=== PATIENT | female | born 1975 | race Caucasian/White ===

== ENCOUNTER → 2017-06-05 | Outpatient (CLI) | payer OTHER ==
[~2017-06-05] MED LIST: OMNIPAQUE 350 MG/ML, 150 ML BOTTLE ONE
== END | disposition home or self-care (01) ==
LOC: RAD 13:26
PROVIDERS: ATTEND Nurse Practitioner Family
DX: N20.0 Calculus of kidney (principal); K76.0 Fatty (change of) liver, not elsewhere classified; K42.9 Umbilical hernia without obstruction or gangrene; R59.0 Localized enlarged lymph nodes
CPT/HCPCS: 74178; Q9967

== ENCOUNTER → 2018-03-05 | Outpatient (CLI) | payer OTHER ==
[2018-03-05 13:12] LABS: BASOPHILS # (AUTO) 0.06 x10^3/uL (0-0.1); BASOPHILS % (AUTO) 1 % (0-1); EOSINOPHILS # (AUTO) 0.41 x10^3/uL (0-0.4); EOSINOPHILS % (AUTO) 7 % (1-7); LYMPHOCYTES # (AUTO) 1.71 x10^3/uL (1-3.4); LYMPHOCYTES % (AUTO) 27 % (22-44); MD NO; MEAN CORPUSCULAR HEMOGLOBIN 31.4 pg (27.0-34.8); MEAN CORPUSCULAR HGB CONC 33.3 g/dL (32.4-35.8); MEAN CORPUSCULAR VOLUME 94.4 fL (80-100); MEAN PLATELET VOLUME 9.4 fL (7.4-10.4); MONOCYTES # (AUTO) 0.38 x10^3/uL (0.2-0.8); MONOCYTES % (AUTO) 6 % (2-9); NEUTROPHILS # (AUTO) 3.83 x10^3/uL (1.8-6.8); NEUTROPHILS % (AUTO) 60 % (42-75); PLATELET COUNT 331 x10^3/uL (130-400); RED BLOOD COUNT 4.43 x10^6/uL (3.82-5.3); RED CELL DISTRIBUTION WIDTH 14.2 % (9.6-15.2)
[2018-03-05 13:26] LABS: CHLORIDE 109 mmol/L (98-107); HEMOGLOBIN A1C 5.8 % (4.2-6.3)
[2018-03-05 13:47] LABS: ALANINE AMINOTRANSFERASE 30 U/L (12-78); ALBUMIN 3.5 g/dL (3.4-5.0); ALKALINE PHOSPHATASE 92 U/L (45-117); ANION GAP 9 mmol/L (5-15); BILIRUBIN,TOTAL 0.2 mg/dL (0.2-1.0); CALCIUM 8.3 mg/dL (8.5-10.1); CHOLESTEROL, TOTAL 151 mg/dL (140-239); HDL CHOL % 25 % (28-40); HDL CHOLESTEROL (DIRECT) 38 mg/dL (40-60); LDL CHOLESTEROL,CALCULATED 93 mg/dL (54-169); LDL/HDL RATIO 2.4 (0.5-3.0); T4 (THYROXINE) 8.4 mcg/dL (4.8-13.9); THYROID STIMULATING HORMONE 0.968 mIU/L (0.358-3.740); TOTAL PROTEIN 7.3 g/dL (6.4-8.2); TRIGLYCERIDES 102 mg/dL (50-200); VLDL CHOLESTEROL 20 mg/dL (0-25)
== END ==
LOC: CFH 07:56
PROVIDERS: ATTEND Family Medicine
DX: Z00.01 Encounter for general adult medical examination with abnormal findings (principal); B37.3 Candidiasis of vulva and vagina; E66.01 Morbid (severe) obesity due to excess calories; R73.01 Impaired fasting glucose
CPT/HCPCS: 36415; 80053; 80061; 83036; 83721; 84436; 84443; 84480; 84481; 85025

== ENCOUNTER 2018-06-28 11:24 | Observation (INO) | payer OTHER ==
[~2018-06-28] VITALS: Ht 165.1 cm; Wt 111.4 kg
[2018-06-28] MEDS ORDERED: MONT10TA6 PO (11:53)
[2018-06-28] MEDS ORDERED: VITAMIN B12 (11:54)
[2018-06-28] MEDS ORDERED: BIOTIN (11:54)
[2018-06-28] MEDS ORDERED: FISH OIL (11:54)
[2018-06-28] MEDS ORDERED: VITAMIN D (11:54)
[2018-06-28] MEDS ORDERED: LORA10TA75 PO (11:55)
[2018-06-28 12:25] LABS: BASOPHILS # (AUTO) 0.04 x10^3/uL (0-0.1); BASOPHILS % (AUTO) 1 % (0-1); EOSINOPHILS # (AUTO) 0.22 x10^3/uL (0-0.4); EOSINOPHILS % (AUTO) 3 % (1-7); LYMPHOCYTES # (AUTO) 2.03 x10^3/uL (1-3.4); LYMPHOCYTES % (AUTO) 29 % (22-44); MD NO; MEAN CORPUSCULAR HEMOGLOBIN 30.2 pg (27.0-34.8); MEAN CORPUSCULAR HGB CONC 32.7 g/dL (32.4-35.8); MEAN CORPUSCULAR VOLUME 92.3 fL (80-100); MEAN PLATELET VOLUME 8.4 fL (7.4-10.4); MONOCYTES # (AUTO) 0.39 x10^3/uL (0.2-0.8); MONOCYTES % (AUTO) 6 % (2-9); NEUTROPHILS # (AUTO) 4.28 x10^3/uL (1.8-6.8); NEUTROPHILS % (AUTO) 62 % (42-75); PLATELET COUNT 345 x10^3/uL (130-400); RED BLOOD COUNT 4.52 x10^6/uL (3.82-5.3); RED CELL DISTRIBUTION WIDTH 14.9 % (9.6-15.2)
[2018-06-28 12:36] LABS: ALANINE AMINOTRANSFERASE 30 U/L (12-78); ALBUMIN 3.5 g/dL (3.4-5.0); ANION GAP 11 mmol/L (5-15); CALCIUM 8.4 mg/dL (8.5-10.1); CHLORIDE 108 mmol/L (98-107); CREATININE 0.85 mg/dL (0.55-1.02)
[2018-06-28 12:40] LABS: ALKALINE PHOSPHATASE 95 U/L (45-117); BILIRUBIN,TOTAL 0.2 mg/dL (0.2-1.0); TOTAL PROTEIN 7.3 g/dL (6.4-8.2); TROPONIN I < 0.015 ng/mL (0.000-0.045)
[2018-06-28] MEDS ORDERED: SODIUM CHLORIDE FLUSH 10ML SYR IVF ONE (13:00)
[2018-06-28] MEDS ORDERED: SODIUM CHLORIDE FLUSH 10ML SYR IVF PRN (14:00)
[2018-06-28 15:11] VITALS: BP 122/86
[2018-06-28] MEDS ORDERED: LABETALOL 5MG/ML, 20ML IVPush PRN (17:00)
[2018-06-28] MEDS ORDERED: ONDANSETRON 2MG/ML, 2ML IVPush PRN (17:00)
[2018-06-28] MEDS ORDERED: ENOXAPARIN 40 MG/0.4 ML SQ SCH (17:00)
[2018-06-28] MEDS ORDERED: BISACODYL 10 MG SUPP PR PRN (17:00)
[2018-06-28] MEDS ORDERED: DOCUSATE 100 MG CAPSULE PO PRN (17:00)
[2018-06-28] MEDS ORDERED: POLYETHYLENE GLYCOL 17 GM PACKET PO PRN (17:00)
[2018-06-28] MEDS ORDERED: ACETAMINOPHEN 325 MG TABLET PO PRN (17:00)
[2018-06-28 17:38] LABS: TROPONIN I < 0.015 ng/mL (0.000-0.045)
[2018-06-28 19:25] VITALS: BP 118/78
[2018-06-28] MEDS: SODIUM CHLORIDE FLUSH 10ML SYR IVF SCH (20:24)
[2018-06-28] MEDS ORDERED: MONTELUKAST 10 MG TABLET PO SCH (21:00)
[2018-06-28 22:31] LABS: TROPONIN I < 0.015 ng/mL (0.000-0.045)
[2018-06-29 03:28] VITALS: BP 96/65
[2018-06-29 05:44] LABS: ALBUMIN 3.3 g/dL (3.4-5.0); ANION GAP 8 mmol/L (5-15); CALCIUM 8.3 mg/dL (8.5-10.1); CHLORIDE 108 mmol/L (98-107)
[2018-06-29 05:48] LABS: ALANINE AMINOTRANSFERASE 28 U/L (12-78); ALKALINE PHOSPHATASE 88 U/L (45-117); BILIRUBIN,TOTAL 0.3 mg/dL (0.2-1.0); CHOL/HDL RATIO 2.8; CHOLESTEROL, TOTAL 156 mg/dL (140-239); CREATININE 0.84 mg/dL (0.55-1.02); HDL CHOL % 35 % (28-40); HDL CHOLESTEROL (DIRECT) 55 mg/dL (40-60); LDL CHOLESTEROL,CALCULATED 81 mg/dL (54-169); LDL/HDL RATIO 1.5 (0.5-3.0); TOTAL PROTEIN 6.8 g/dL (6.4-8.2); TRIGLYCERIDES 98 mg/dL (50-200); VLDL CHOLESTEROL 20 mg/dL (0-25)
[2018-06-29 08:22] VITALS: BP 133/92
[2018-06-29] MEDS: SODIUM CHLORIDE FLUSH 10ML SYR IVF SCH (10:30)
== END 2018-06-29 13:48 | disposition home or self-care (01) ==
LOC: ED 13:38 → EDIP 13:39 → INTOOBSV 13:39 → 5SO 15:04
PROVIDERS: ADMIT Internal Medicine; ATTEND Internal Medicine
DX: M25.511 Pain in right shoulder (principal); J45.909 Unspecified asthma, uncomplicated; M19.90 Unspecified osteoarthritis, unspecified site; R06.00 Dyspnea, unspecified; R73.9 Hyperglycemia, unspecified; R10.11 Right upper quadrant pain; Z80.51 Family history of malignant neoplasm of kidney; Z82.49 Family history of ischemic heart disease and other diseases of the circulatory system; Z79.899 Other long term (current) drug therapy
CPT/HCPCS: 36415; 71045; 73030; 76700; 78452; 80053; 80061; 84484; 85025; 85379; 93005; 93017; 99285; A9502; C9898; G0378

== ENCOUNTER → 2018-08-11 | Outpatient (CLI) | payer OTHER ==
[~2018-08-11] MED LIST changes: +BIOTIN; +FISH OIL; +LORA10TA75 PO; +MONT10TA6 PO; -OMNIPAQUE 350 MG/ML, 150 ML BOTTLE ONE; +SINCALIDE (KINEVAC) 5 MCG ONE; +VITAMIN B12; +VITAMIN D
== END | disposition home or self-care (01) ==
LOC: RAD 10:08
PROVIDERS: ATTEND Family Medicine
DX: R10.11 Right upper quadrant pain (principal); R11.0 Nausea
CPT/HCPCS: 78227; A9537; J2805

== ENCOUNTER → 2019-01-16 | Outpatient (CLI) | payer OTHER ==
[~2019-01-16] MED LIST changes: +OMNIPAQUE 350 MG/ML, 75ML BOTTLE ONE; -SINCALIDE (KINEVAC) 5 MCG ONE
== END | disposition home or self-care (01) ==
LOC: CFH 09:12 → EDSTATUS 01-20 13:15
PROVIDERS: ATTEND Obstetrics & Gynecology
DX: R91.8 Other nonspecific abnormal finding of lung field (principal)
CPT/HCPCS: 71260; Q9967

== ENCOUNTER 2019-01-30 08:23 | Outpatient (CLI) | payer OTHER ==
[~2019-01-30 08:23] MED LIST changes: -OMNIPAQUE 350 MG/ML, 75ML BOTTLE ONE
[2019-01-30] MEDS ORDERED: LIDOCAINE 1%, 10ML ONE (09:50)
== END 2019-01-30 23:59 | disposition home or self-care (01) ==
LOC: RAD 08:23
PROVIDERS: ATTEND Otolaryngology
DX: K11.8 Other diseases of salivary glands (principal)
CPT/HCPCS: 10005; 88112; 88305; J3490; 76942

== ENCOUNTER → 2019-03-16 | Outpatient (CLI) | payer OTHER ==
[2019-03-16 08:56] LABS: BASOPHILS # (AUTO) 0.04 x10^3/uL (0-0.1); BASOPHILS % (AUTO) 1 % (0-1); EOSINOPHILS # (AUTO) 0.38 x10^3/uL (0-0.4); EOSINOPHILS % (AUTO) 7 % (1-7); LYMPHOCYTES # (AUTO) 1.57 x10^3/uL (1-3.4); LYMPHOCYTES % (AUTO) 28 % (22-44); MD NO; MEAN CORPUSCULAR HEMOGLOBIN 30.6 pg (27.0-34.8); MEAN CORPUSCULAR VOLUME 92.8 fL (80-100); MEAN PLATELET VOLUME 8.4 fL (7.4-10.4); MONOCYTES # (AUTO) 0.29 x10^3/uL (0.2-0.8); MONOCYTES % (AUTO) 5 % (2-9); NEUTROPHILS # (AUTO) 3.39 x10^3/uL (1.8-6.8); NEUTROPHILS % (AUTO) 60 % (42-75); PLATELET COUNT 310 x10^3/uL (130-400); RED BLOOD COUNT 4.21 x10^6/uL (3.82-5.3); RED CELL DISTRIBUTION WIDTH 14.1 % (9.6-15.2)
[2019-03-16 09:06] LABS: ALANINE AMINOTRANSFERASE 28 U/L (12-78); ALBUMIN 3.2 g/dL (3.4-5.0); ANION GAP 6 mmol/L (5-15); CALCIUM 8.4 mg/dL (8.5-10.1); CHLORIDE 113 mmol/L (98-107); CHOLESTEROL, TOTAL 152 mg/dL (140-239); CREATININE 0.78 mg/dL (0.55-1.02)
[2019-03-16 09:08] LABS: ALKALINE PHOSPHATASE 70 U/L (45-117); CHOL/HDL RATIO 3.2; HDL CHOL % 32 % (28-40); HDL CHOLESTEROL (DIRECT) 48 mg/dL (40-60); LDL CHOLESTEROL,CALCULATED 85 mg/dL (54-169); LDL/HDL RATIO 1.8 (0.5-3.0); TOTAL PROTEIN 6.5 g/dL (6.4-8.2); TRIGLYCERIDES 96 mg/dL (50-200); VLDL CHOLESTEROL 19 mg/dL (0-25)
[2019-03-16 09:39] LABS: BILIRUBIN,TOTAL < 0.1 mg/dL (0.2-1.0)
== END | disposition home or self-care (01) ==
LOC: CFH 07:58
PROVIDERS: ATTEND Nurse Practitioner Family
DX: Z00.00 Encounter for general adult medical examination without abnormal findings (principal)
CPT/HCPCS: 36415; 80053; 80061; 85025

== ENCOUNTER → 2019-04-06 | Outpatient (CLI) | payer OTHER | END | disposition home or self-care (01) | LOC: CFH 07:03 | PROVIDERS: ATTEND Nurse Practitioner Family | DX: Z12.31 Encounter for screening mammogram for malignant neoplasm of breast (principal) | CPT/HCPCS: 77063; 77067 ==

== ENCOUNTER 2019-07-03 09:18 | Outpatient (CLI) | payer OTHER | END 2019-07-03 23:59 | disposition home or self-care (01) | LOC: STAR 09:18 | PROVIDERS: ATTEND Specialist | DX: Z01.818 Encounter for other preprocedural examination (principal); N80.9 Endometriosis, unspecified | CPT/HCPCS: 36415; 71046; 80053; 84703; 85025; 85610; 85730; 93005 ==

== ENCOUNTER 2019-07-13 05:43 | Inpatient (IN) | payer OTHER ==
[~2019-07-13] VITALS: Ht 165.1 cm; Wt 118.7 kg
[2019-07-15 16:01] VITALS: BP 127/80
== END 2019-07-15 16:42 | disposition home or self-care (01) | DRG 330 ==
LOC: OUT 05:43 → ORIP 11:42 → 4NOR 12:55 → DCLOUNGE 07-15 16:36
PROVIDERS: ADMIT Specialist; ATTEND Specialist
PROC: 0DTN4ZZ Resection of Sigmoid Colon, Percutaneous Endoscopic Approach (ICD-10-PCS; principal; 2019-07-13)
PROC: 0UT94ZZ Resection of Uterus, Percutaneous Endoscopic Approach (ICD-10-PCS; 2019-07-13)
PROC: 0UT74ZZ Resection of Bilateral Fallopian Tubes, Percutaneous Endoscopic Approach (ICD-10-PCS; 2019-07-13)
PROC: 0UT24ZZ Resection of Bilateral Ovaries, Percutaneous Endoscopic Approach (ICD-10-PCS; 2019-07-13)
PROC: 8E0W4CZ Robotic Assisted Procedure of Trunk Region, Percutaneous Endoscopic Approach (ICD-10-PCS; 2019-07-13)
DX: N80.5 Endometriosis of intestine (principal); J45.901 Unspecified asthma with (acute) exacerbation; Z68.41 Body mass index [BMI] 40.0-44.9, adult; N92.1 Excessive and frequent menstruation with irregular cycle; N94.6 Dysmenorrhea, unspecified; N80.3 Endometriosis of pelvic peritoneum; B37.3 Candidiasis of vulva and vagina; N94.89 Other specified conditions associated with female genital organs and menstrual cycle; Z88.2 Allergy status to sulfonamides; Z90.49 Acquired absence of other specified parts of digestive tract; Z80.51 Family history of malignant neoplasm of kidney; E66.9 Obesity, unspecified; Z71.3 Dietary counseling and surveillance
CPT/HCPCS: 36415; 74018; 80048; 81025; 82040; 85025; 86850; 86900; 86923; 88305; 88307; 88331; G0378; J0690; J1100; J1170; J1644; J1885; J2250; J2405; J2704; J3010; J3480; J1050; J2270; J7120

== ENCOUNTER → 2019-11-11 | Outpatient (CLI) | payer OTHER ==
[~2019-11-11] MED LIST changes: +ALBU8.5H8 INH; +CIPR500T87 PO; +DESO1TAB72 PO; +FLUC150T PO; +MULT-516 PO; +ONDA4TAB7 PO; +OXYC-306 PO
== END | disposition home or self-care (01) ==
LOC: CFH 12:48
PROVIDERS: ATTEND Nurse Practitioner Family
CPT/HCPCS: 77080

== ENCOUNTER 2020-04-20 15:29 | Outpatient (CLI) | payer OTHER ==
[~2020-04-20 15:29] MED LIST changes: -DESO1TAB72 PO; +DESO1TAB89 PO
== END 2020-04-20 23:59 | disposition home or self-care (01) ==
LOC: CFH 15:29
PROVIDERS: ATTEND Nurse Practitioner Family
DX: Z12.31 Encounter for screening mammogram for malignant neoplasm of breast (principal)
CPT/HCPCS: 77063; 77067

== ENCOUNTER 2020-04-22 07:09 | Outpatient (CLI) | payer OTHER ==
[2020-04-22 13:09] LABS: BASOPHILS % (AUTO) 2 % (0-1); CHLORIDE 111 mmol/L (98-107); EOSINOPHILS # (AUTO) 0.54 x10^3/uL (0-0.4); EOSINOPHILS % (AUTO) 8 % (1-7); LYMPHOCYTES # (AUTO) 1.56 x10^3/uL (1-3.4); LYMPHOCYTES % (AUTO) 24 % (22-44); MD NO; MEAN CORPUSCULAR HGB CONC 32.7 g/dL (32.4-35.8); MEAN CORPUSCULAR VOLUME 94.8 fL (80-100); MEAN PLATELET VOLUME 9.1 fL (7.4-10.4); MONOCYTES # (AUTO) 0.42 x10^3/uL (0.2-0.8); MONOCYTES % (AUTO) 7 % (2-9); NEUTROPHILS # (AUTO) 3.79 x10^3/uL (1.8-6.8); NEUTROPHILS % (AUTO) 59 % (42-75); PLATELET COUNT 329 x10^3/uL (130-400); RED BLOOD COUNT 4.56 x10^6/uL (3.82-5.3)
[2020-04-22 13:27] LABS: ALANINE AMINOTRANSFERASE 45 U/L (12-78); ALBUMIN 3.8 g/dL (3.4-5.0); ALKALINE PHOSPHATASE 97 U/L (45-117); ANION GAP 10 mmol/L (5-15); BILIRUBIN,TOTAL 0.3 mg/dL (0.2-1.0); CALCIUM 8.8 mg/dL (8.5-10.1); CHOL/HDL RATIO 3.6; CHOLESTEROL, TOTAL 167 mg/dL (140-239); CREATININE 0.84 mg/dL (0.55-1.02); HDL CHOL % 28 % (28-40); HDL CHOLESTEROL (DIRECT) 46 mg/dL (40-60); LDL CHOLESTEROL,CALCULATED 105 mg/dL (54-169); LDL/HDL RATIO 2.3 (0.5-3.0); TOTAL PROTEIN 7.5 g/dL (6.4-8.2); TRIGLYCERIDES 82 mg/dL (50-200); VLDL CHOLESTEROL 16 mg/dL (0-25)
== END 2020-04-22 23:59 | disposition home or self-care (01) ==
LOC: CFH 07:09
PROVIDERS: ATTEND Nurse Practitioner Family
DX: Z00.00 Encounter for general adult medical examination without abnormal findings (principal)
CPT/HCPCS: 36415; 80053; 80061; 85025

== ENCOUNTER 2020-05-18 14:11 | Outpatient (CLI) | payer OTHER ==
[2020-05-18] MEDS ORDERED: OMEG1CAP6 PO (14:57)
[2020-05-18] MEDS ORDERED: FLUT1DIS3 INH (14:57)
[2020-05-18] MEDS ORDERED: BIOT5TAB PO (14:57)
== END 2020-05-18 23:59 | disposition home or self-care (01) ==
LOC: STAR 14:11
DX: Z02.9 Encounter for administrative examinations, unspecified (principal)

== ENCOUNTER → 2020-09-15 | Outpatient (CLI) | payer OTHER ==
[~2020-09-15] MED LIST changes: +BIOT5TAB PO; +FLUT1DIS3 INH; +LIDOCAINE-MPF 1%, 5ML ONE; +OMEG1CAP6 PO
== END | disposition home or self-care (01) ==
LOC: RAD 13:07
PROVIDERS: ATTEND Otolaryngology
DX: D37.030 Neoplasm of uncertain behavior of the parotid salivary glands (principal); K11.6 Mucocele of salivary gland
CPT/HCPCS: 10005; 76536; 88112; 88305

== ENCOUNTER → 2020-09-21 | Outpatient (CLI) | payer OTHER ==
[~2020-09-21] MED LIST changes: -LIDOCAINE-MPF 1%, 5ML ONE
[2020-09-21 15:52] LABS: BASOPHILS % (AUTO) 1 % (0-1); EOSINOPHILS % (AUTO) 8 % (1-7); LYMPHOCYTES % (AUTO) 21 % (22-44); MEAN CORPUSCULAR HEMOGLOBIN 31.4 pg (27.0-34.8); MEAN CORPUSCULAR HGB CONC 33.4 g/dL (32.4-35.8); MEAN PLATELET VOLUME 8.6 fL (7.4-10.4); MONOCYTES % (AUTO) 7 % (2-9); NEUTROPHILS % (AUTO) 63 % (42-75); PLATELET COUNT 347 x10^3/uL (130-400); RED BLOOD COUNT 4.47 x10^6/uL (3.82-5.3); RED CELL DISTRIBUTION WIDTH 13.5 % (9.6-15.2)
[2020-09-21 15:53] LABS: MD NO
[2020-09-21 16:01] LABS: ANION GAP 9 mmol/L (5-15); CALCIUM 9.4 mg/dL (8.5-10.1); CHLORIDE 108 mmol/L (98-107)
[2020-09-21 16:02] LABS: CREATININE 0.83 mg/dL (0.55-1.02)
== END | disposition home or self-care (01) ==
LOC: STAR 14:34
PROVIDERS: ATTEND Orthopaedic Surgery Adult Reconstructive Orthopaedic Surgery
DX: Z01.818 Encounter for other preprocedural examination (principal); M17.11 Unilateral primary osteoarthritis, right knee
CPT/HCPCS: 36415; 80048; 85025; 87081; 87806; G0475

== ENCOUNTER → 2020-09-28 | Outpatient (CLI) | payer OTHER | END | disposition home or self-care (01) | LOC: STAR 11:25 | PROVIDERS: ATTEND Anesthesiology | DX: Z01.812 Encounter for preprocedural laboratory examination (principal); Z20.828 Contact with and (suspected) exposure to other viral communicable diseases | CPT/HCPCS: 36415; 87635 ==

== ENCOUNTER 2020-10-03 05:37 | Day surgery (SDC) | payer OTHER ==
[~2020-10-03] VITALS: Ht 165.1 cm; Wt 100.8 kg
[2020-10-03 06:08] VITALS: BP 126/83
[2020-10-03] MEDS ORDERED: CHLORHEXIDINE 15 ML UDC ONE (06:12)
[2020-10-03] MEDS ORDERED: FENTANYL PF 100 MCG/2ML ONE ×3 (06:17→08:21)
[2020-10-03] MEDS ORDERED: ONDANSETRON 2MG/ML, 2ML ONE (06:18)
[2020-10-03] MEDS ORDERED: PROPOFOL 10 MG/ML, 20ML ONE (06:18)
[2020-10-03] MEDS ORDERED: MIDAZOLAM 1 MG/ML, 2ML ONE ×2 (06:18→08:21)
[2020-10-03] MEDS ORDERED: NEOSTIGMINE 1 MG/ML, 10ML ONE (06:18)
[2020-10-03] MEDS ORDERED: DEXAMETHASONE 4 MG/ML, 1ML ONE (06:18)
[2020-10-03] MEDS ORDERED: SUCCINYLCHOLINE 20 MG/ML, 10ML ONE (06:18)
[2020-10-03] MEDS ORDERED: ROCURONIUM 10MG/ML,5ML ONE (06:18)
[2020-10-03] MEDS ORDERED: GLYCOPYRROLATE 0.2MG/1ML, 5ML ONE (06:18)
[2020-10-03] MEDS ORDERED: CEFAZOLIN 1,000 MG ONE (06:18)
[2020-10-03] MEDS ORDERED: BUPIVACAINE LIPOSOME/PF 10ML INFIL ONE (06:21)
[2020-10-03] MEDS ORDERED: KETOROLAC 60 MG/2 ML ONE (06:30)
[2020-10-03] MEDS ORDERED: CHLORHEXIDINE 15 ML UDC MM ONE (06:30)
[2020-10-03] MEDS ORDERED: TRANEXAMIC ACID 100 MG/ML, 10ML ONE ×2 (06:30)
[2020-10-03] MEDS ORDERED: SODIUM CHLORIDE 0.9% 50 ML ONE (06:30)
[2020-10-03] MEDS ORDERED: EPINEPHRINE 1 MG/ML, 1ML ONE (06:30)
[2020-10-03] MEDS ORDERED: ROPIvacaine/PF 0.2%, 20 ML ONE (06:30)
[2020-10-03] MEDS ORDERED: LACTATED RINGERS 1,000 ML IV SCH (06:30)
[2020-10-03] MEDS ORDERED: VANCOMYCIN 1,000 MG ONE (06:31)
[2020-10-03] MEDS ORDERED: ACETAMINOPHEN 500 MG TABLET ONE (06:42)
[2020-10-03] MEDS ORDERED: GABAPENTIN 300 MG CAPSULE ONE (06:42)
[2020-10-03] MEDS ORDERED: HYDROmorphone 1 MG/ML, 1ML INJ IVPush PRN (07:00)
[2020-10-03] MEDS ORDERED: GABAPENTIN 300 MG CAPSULE PO ONE (07:00)
[2020-10-03] MEDS ORDERED: MEPERIDINE/PF 25MG/0.5ML IVPush PRN (07:00)
[2020-10-03] MEDS ORDERED: SUGAMMADEX 200 MG/2 ML IVPush ONE (07:00)
[2020-10-03] MEDS ORDERED: OXYcodone 5 MG/5 ML ORAL.SOL UDC PO PRN (07:00)
[2020-10-03] MEDS ORDERED: ACETAMINOPHEN 500 MG TABLET PO ONE (07:00)
[2020-10-03] MEDS ORDERED: PROMETHAZINE 25 MG/ML, 1ML IVPush PRN (07:00)
[2020-10-03] MEDS ORDERED: OXYcodone 5 MG/5 ML ORAL.SOL UDC ONE (08:21)
[2020-10-03] MEDS: MIDAZOLAM 1 MG/ML, 2ML IVPush PRN ×2 (08:25→08:57)
[2020-10-03] MEDS: FENTANYL PF 100 MCG/2ML IV PRN ×4 (08:26→09:16)
[2020-10-03] MEDS ORDERED: SENNA/DOCUSATE TABLET PO PRN (08:30)
[2020-10-03] MEDS ORDERED: ONDANSETRON 2MG/ML, 2ML IV PRN (08:30)
[2020-10-03] MEDS ORDERED: HYDROcodone/APAP 5/325 TABLET PO PRN (08:30)
[2020-10-03] MEDS ORDERED: MORPHINE SULFATE 4 MG/ML, 1ML IVPush PRN (08:30)
[2020-10-03] MEDS ORDERED: BISACODYL 10 MG SUPP PR PRN (08:30)
[2020-10-03] MEDS ORDERED: DIPHENHYDRAMINE 50 MG CAPSULE PO PRN (08:30)
[2020-10-03] MEDS ORDERED: OXYcodone IR 5MG TABLET PO PRN (08:30)
[2020-10-03] MEDS ORDERED: ALUMINUM/MAG/SIMETHICONE 30 ML UDC PO PRN (08:30)
[2020-10-03] MEDS ORDERED: MAGNESIUM HYDROXIDE 8%, 30ML UDC PO PRN (08:30)
[2020-10-03] MEDS ORDERED: D5%-0.45% NACL 1,000 ML IV SCH (08:30)
[2020-10-03] MEDS ORDERED: ACETAMINOPHEN 650 MG/20.3 ML UDC PO PRN (08:30)
[2020-10-03] MEDS ORDERED: ALBUTEROL HFA 90 MCG/SPRAY INH SCH (08:30)
[2020-10-03] MEDS ORDERED: POLYETHYLENE GLYCOL 17 GM PACKET PO PRN (08:30)
[2020-10-03] MEDS ORDERED: (Fluticasone/Salmeterol** (Advair 250-50 Diskus**) 1 PUFF) INH SCH (09:00)
[2020-10-03] MEDS ORDERED: DOCUSATE 100 MG CAPSULE PO SCH (09:00)
[2020-10-03] MEDS ORDERED: MORPHINE SULFATE 4 MG/ML, 1ML ONE (09:49)
[2020-10-03] MEDS ORDERED: ASPI81TA45 PO (09:50)
[2020-10-03] MEDS ORDERED: OXYC5CAP2 PO (09:50)
[2020-10-03] MEDS ORDERED: CEFAZOLIN PMX 1GM/50ML 50 ML IVPB SCH (10:00)
[2020-10-03 12:16] VITALS: BP 133/82
[2020-10-03] MEDS: OXYcodone IR 5MG TABLET PO PRN ×2 (12:58→16:45)
[2020-10-03] MEDS ORDERED: KETOROLAC 30 MG/1 ML IV SCH (14:30)
[2020-10-03] MEDS ORDERED: MONTELUKAST 10 MG TABLET PO SCH (21:00)
[2020-10-04] MEDS ORDERED: ASPIRIN 81 MG TABLET EC PO SCH (06:00)
== END 2020-10-03 17:05 | disposition home or self-care (01) ==
LOC: OUT 05:37 → 4NE 09:30 → DCLOUNGE 16:58 → OUT 17:05
PROVIDERS: ATTEND Orthopaedic Surgery Adult Reconstructive Orthopaedic Surgery
DX: M17.11 Unilateral primary osteoarthritis, right knee (principal); M21.061 Valgus deformity, not elsewhere classified, right knee; M25.761 Osteophyte, right knee; G89.18 Other acute postprocedural pain; J45.909 Unspecified asthma, uncomplicated; E66.9 Obesity, unspecified; Z79.899 Other long term (current) drug therapy; Z88.2 Allergy status to sulfonamides
CPT/HCPCS: 27447; 64447; 97161; C1713; C1776; J0171; J0330; J0690; J1100; J1885; J2250; J2270; J2405; J2704; J2710; J2795; J3010; J7120; J3370

== ENCOUNTER → 2021-04-17 | Outpatient (CLI) | payer OTHER ==
[~2021-04-17] MED LIST changes: +ASPI81TA45 PO; -OXYC-306 PO; +OXYC1TAB17 PO; +OXYC5CAP2 PO
[2021-04-17 09:05] LABS: BASOPHILS % (AUTO) 1 % (0-1); EOSINOPHILS % (AUTO) 9 % (1-7); LYMPHOCYTES % (AUTO) 35 % (22-44); MEAN CORPUSCULAR HGB CONC 33.4 g/dL (32.4-35.8); MEAN PLATELET VOLUME 8.2 fL (7.4-10.4); MONOCYTES % (AUTO) 7 % (2-9); NEUTROPHILS % (AUTO) 49 % (42-75); PLATELET COUNT 315 x10^3/uL (130-400); RED BLOOD COUNT 4.34 x10^6/uL (3.82-5.3); RED CELL DISTRIBUTION WIDTH 14.1 % (9.6-15.2)
[2021-04-17 09:06] LABS: MD NO
[2021-04-17 09:12] LABS: ALANINE AMINOTRANSFERASE 35 U/L (12-78); ALBUMIN 3.8 g/dL (3.4-5.0); CALCIUM 9.1 mg/dL (8.5-10.1); CHLORIDE 110 mmol/L (98-107); CHOLESTEROL, TOTAL 159 mg/dL (140-239); CREATININE 0.71 mg/dL (0.55-1.02)
[2021-04-17 09:15] LABS: ALKALINE PHOSPHATASE 151 U/L (45-117); BILIRUBIN,TOTAL 0.3 mg/dL (0.2-1.0); CHOL/HDL RATIO 3.7; HDL CHOL % 27 % (28-40); HDL CHOLESTEROL (DIRECT) 43 mg/dL (40-60); LDL CHOLESTEROL,CALCULATED 89 mg/dL (54-169); LDL/HDL RATIO 2.1 (0.5-3.0); TOTAL PROTEIN 7.5 g/dL (6.4-8.2); TRIGLYCERIDES 136 mg/dL (50-200); VLDL CHOLESTEROL 27 mg/dL (0-25)
[2021-04-17 09:21] LABS: ANION GAP 4 mmol/L (5-15)
== END | disposition home or self-care (01) ==
LOC: LAB 08:49
PROVIDERS: ATTEND Nurse Practitioner Family
DX: Z00.00 Encounter for general adult medical examination without abnormal findings (principal)
CPT/HCPCS: 36415; 80053; 80061; 85025

== ENCOUNTER → 2021-08-23 | Outpatient (CLI) | payer OTHER | END | disposition home or self-care (01) | LOC: LAB 12:56 | PROVIDERS: ATTEND Nurse Practitioner Family | DX: N39.0 Urinary tract infection, site not specified (principal); N76.0 Acute vaginitis ==